=== PATIENT | male | born 1960 | race Caucasian/White ===

== ENCOUNTER 2017-11-15 23:01 | Inpatient (IN) | payer BC, MEDICARE, OTHER, SELFPAY | END 2017-11-17 11:50 | disposition home or self-care (01) | DRG 540 | PROVIDERS: Admitting Provider Internal Medicine; Emergency Provider Emergency Medicine; Visit Provider Internal Medicine | DX: M86.8X7 Other osteomyelitis, ankle and foot (principal); T25.322A Burn of third degree of left foot, initial encounter; E11.40 Type 2 diabetes mellitus with diabetic neuropathy, unspecified; E11.621 Type 2 diabetes mellitus with foot ulcer; E11.319 Type 2 diabetes mellitus with unspecified diabetic retinopathy without macular edema; L03.032 Cellulitis of left toe; T25.332A Burn of third degree of left toe(s) (nail), initial encounter; E11.69 Type 2 diabetes mellitus with other specified complication; X08.8XXA Exposure to other specified smoke, fire and flames, initial encounter; E11.65 Type 2 diabetes mellitus with hyperglycemia; Z79.4 Long term (current) use of insulin; I10 Essential (primary) hypertension; F17.200 Nicotine dependence, unspecified, uncomplicated | CPT/HCPCS: 73630; 80048; 82962; 83605; 85025; 85651; 86140; 87070; 87077; 87147; 87186; 87205; 93926; 96365; 99058; 99285; J2543; J3370 ==

== ENCOUNTER 2019-01-26 11:30 | Outpatient (RCR) | payer OTHER, SELFPAY | END 2019-02-02 08:56 | LOC: CAR 11:30 | PROVIDERS: Family Provider Family Medicine; PCP Family Medicine; Visit Provider Nurse Practitioner Family | DX: I20.9 Angina pectoris, unspecified (principal) | CPT/HCPCS: 93798 ==